=== PATIENT | female | born 2000 | race American Indian/Alaskan Native ===

== ENCOUNTER 2021-04-06 23:00 | Outpatient (CLI) | payer OTHER, MEDICAID ==
[2021-04-06 23:23] VITALS: BP 123/74
[2021-04-06] MEDS ORDERED: LACTATED RINGERS 500 ML IV ONE (23:32)
[2021-04-07] MEDS ORDERED: LACTATED RINGERS 1,000 ML ONE (00:25)
[2021-04-07] MEDS ORDERED: LACTATED RINGERS 1,000 ML IV ONE (01:04)
[2021-04-07 01:25] LABS: Bacteria,Urine 1+ /HPF (Negative); Bilirubin,Urine NEG (Negative); Blood,Urine NEG (Negative); Color,Urine Colorless (Yellow); Protein,Urine <15 mg/dL mg/dL (Negative); Urobilinogen,Urine < 2.0 mg/dL (<2.0)
== END 2021-04-07 02:30 | disposition home or self-care (01) ==
LOC: TRG 23:00 → APU 23:07 → TRG 04-07 02:30
PROVIDERS: ATTEND Obstetrics & Gynecology
DX: O26.893 Other specified pregnancy related conditions, third trimester (principal); R10.2 Pelvic and perineal pain; Z3A.29 29 weeks gestation of pregnancy
CPT/HCPCS: 59025; 81001; 96360; J7120

== ENCOUNTER 2021-05-07 07:25 | Outpatient (CLI) | payer OTHER, MEDICAID ==
[2021-05-07 07:29] VITALS: BP 111/64
--- NOTE | 2021-05-07 08:58 | Ultrasound Report ---
ULTRASOUND OBSTETRIC LIMITED ULTRASOUND BIOPHYSICAL PROFILE INDICATION / CLINICAL INFORMATION: BPP/ANNY. Clinical Gestational Age (GA): 34.2 weeks.days COMPARISON: None available. FINDINGS: BREATHING MOVEMENT = 2 GROSS BODY MOVEMENT = 2 TONE = 2 QUALITATIVE AMNIOTIC FLUID VOLUME = 2 TOTAL BIOPHYSICAL SCORE = 8/8 HEART RATE (beats per minute): 145 AMNIOTIC FLUID INDEX (cm) = 14.0 (normal = 7-24 cm) PRESENTATION: Cephalic. ADDITIONAL FINDINGS: None. IMPRESSION: 1. Biophysical Score = 8/8 2. Single living intrauterine gestation in cephalic position without significant sonographic abnormal ity. Signer Name: Earl Parra MD Signed: 05/07/2021 8:53 AM Workstation Name: [id number]
[2021-05-07] MEDS ORDERED: LACTATED RINGERS 500 ML IV ONE (09:30)
== END 2021-05-07 12:24 | disposition home or self-care (01) ==
LOC: TRG 07:25 → APU 07:26 → TRG 12:24
PROVIDERS: ATTEND Obstetrics & Gynecology
DX: O36.8130 Decreased fetal movements, third trimester, not applicable or unspecified (principal); Z3A.34 34 weeks gestation of pregnancy
CPT/HCPCS: 59025; 76815; 76819

== ENCOUNTER 2021-06-10 20:18 | Inpatient (IN) | payer OTHER, MEDICAID ==
[2021-06-10] MEDS ORDERED: DINOPROSTONE 10 MG VAG SUPP VG ONE (21:43)
[2021-06-10] MEDS ORDERED: MINERAL OIL 30 ML ORAL LIQD PO PRN (21:43)
[2021-06-10] MEDS ORDERED: OXYTOCIN 10 UNIT/1 ML INJ IM PRN (21:43)
[2021-06-10] MEDS ORDERED: CARBOPROST TROMETHAMINE 250 MCG/1 ML INJ IM PRN (21:43)
[2021-06-10] MEDS ORDERED: ACETAMINOPHEN 325 MG TAB PO PRN (21:43)
[2021-06-10] MEDS ORDERED: ONDANSETRON 4 MG/2 ML INJ IV PRN (21:43)
[2021-06-10] MEDS ORDERED: TERBUTALINE 1 MG/1 ML INJ SUB-Q PRN (21:43)
[2021-06-10] MEDS ORDERED: LOPERAMIDE 2 MG CAP PO PRN (21:43)
[2021-06-10] MEDS ORDERED: miSOPROStol 200 MCG TAB PR PRN (21:43)
[2021-06-10] MEDS ORDERED: ePHEDrine SULFATE 50 MG/1 ML INJ IV PRN (21:43)
[2021-06-10] MEDS ORDERED: METHYLERGONOVINE MALEATE 0.2 MG/ML VIAL IM PRN (21:43)
[2021-06-10] MEDS ORDERED: LIDOCAINE (2%) 20 MG/1 ML VIAL 20 ML MDV INFILTRATI ONE (21:43)
[2021-06-10] MEDS ORDERED: LACTATED RINGERS 1,000 ML IV SCH (21:45)
[2021-06-10] MEDS ORDERED: AMPICILLIN/NS 2 GM/100 ML 2 GM/100 ML BAG IV ONE (21:51)
[2021-06-10] MEDS ORDERED: LACTATED RINGERS 1,000 ML ONE (21:56)
[2021-06-10] MEDS ORDERED: OXYTOCIN DRIP 30 UNITS/500 ML BAG IV SCH (22:00)
[2021-06-10 22:21] LABS: Hematocrit 29.8 % (30.3-42.9); Mean Corpuscular HGB Conc 34 % (30-34); Mean Corpuscular Volume 81 fl (79-97); Platelet Count 281 K/mm3 (140-440); Red Cell Distribution Width 15.5 % (13.2-15.2)
[2021-06-10] MEDS: valACYclovir 500 MG TAB PO SCH (22:35)
[2021-06-11] MEDS: BUTORPHANOL 2 MG/1 ML INJ IV PRN ×3 (04:52→20:19)
--- NOTE | 2021-06-11 08:37 | History and Physical Report ---
History of Present Illness Date of examination: 06/11/21 Date of admission: 06/10/21 20:18 Chief complaint: IOL for obesity History of present illness: 21y/o 39+2 weeks presents for induction of labor obesity. Patient initiated care in the first trimester. Her is complicated by obesity. She is GBS positive. Past History Past Medical History: no pertinent history Past Surgical History: no surgical history Social history: single - Obstetrical History Expected Date of Delivery: 06/16/21 Actual Gestation: 39 Week(s) 2 Day(s) : 1 Para: 0 Hx # Term Pregnancies: 0 Number of Pregnancies: 0 Spontaneous Abortions: 0 Induced : 0 Number of Living Children: 0 Medications and Allergies Allergies Allergy/AdvReac Type Severity Reaction Status Date / Time No Known Allergies Allergy Unverified 04/06/21 23:31 Home Medications Medication Instructions Recorded Confirmed Last Taken Type No Known Home Medications [No 06/10/21 06/10/21 Unknown History Reported Home Medications] Active Meds: Active Medications Acetaminophen (Acetaminophen 325 Mg Tab) 650 mg PO Q4H PRN PRN Reason: Pain, Mild (1-3) Butorphanol Tartrate (Butorphanol 2 Mg/1 Ml Inj) 2 mg IV Q2H PRN PRN Reason: Pain , Severe (7-10) Last Admin: 06/11/21 04:52 Dose: 2 mg Documented by: Carboprost Tromethamine (Carboprost Tromethamine 250 Mcg/1 Ml Inj) 250 mcg IM ONCE PRN PRN Reason: Uterine Bleeding Ephedrine Sulfate (Ephedrine Sulfate 50 Mg/1 Ml Inj) 10 mg IV Q2M PRN PRN Reason: Hypotension Oxytocin/Sodium Chloride (Pitocin/Ns 30 Unit/500ml) 30 units in 500 mls @ 2 mls/hr IV TITR MARGO; Protocol Lactated Ringer's (Lactated Ringers) 1,000 mls @ 125 mls/hr IV DIRECT MARGO Ampicillin Sodium (Ampicillin/Ns 1 Gm/50 Ml) 1 gm in 50 mls @ 100 mls/hr IV Q4H MARGO; Protocol Loperamide HCl (Loperamide 2 Mg Cap) 2 mg PO ONCE PRN PRN Reason: give with Hemabate Methylergonovine Maleate (Methylergonovine Maleate 0.2 Mg/Ml Vial) 0.2 mg IM ONCE PRN PRN Reason: Uterine Bleeding Mineral Oil (Mineral Oil 30 Ml Oral Liqd) 30 ml PO QHS PRN PRN Reason: Constipation Misoprostol (Misoprostol 200 Mcg Tab) 800 mcg MD ONCE PRN PRN Reason: Uterine Bleeding Ondansetron HCl (Ondansetron 4 Mg/2 Ml Inj) 4 mg IV Q8H PRN PRN Reason: Nausea And Vomiting Oxytocin (Oxytocin 10 Unit/1 Ml Inj) 10 unit IM ONCE PRN PRN Reason: Uterine Bleeding Terbutaline Sulfate (Terbutaline 1 Mg/1 Ml Inj) 0.25 mg SUB-Q ONCE PRN PRN Reason: Hyperstimulation/Hypertonicity Valacyclovir HCl (Valacyclovir 500 Mg Tab) 1,000 mg PO QDAY MARGO Last Admin: 06/10/21 22:35 Dose: 1,000 mg Documented by: Review of Systems All systems: negative Genitourinary: contractions, no leakage of fluid - Vital Signs Vital signs: Vital Signs Pulse BP 126 H 125/82 06/10/21 21:14 06/10/21 21:14 Temp Pulse Resp BP Pulse Ox 97.5 F L 105 H 16 119/72 100 06/11/21 08:08 06/11/21 08:33 06/10/21 21:32 06/11/21 07:58 06/11/21 08:33 - Physical Exam Breasts: Positive: deferred Cardiovascular: Regular rate Abdomen: Positive: normal appearance Results Result Diagrams: 06/10/21 21:25 Abnormal lab results 06/10/21 Range/Units 21:25 Hgb 10.0 L (10.1-14.3) gm/dl Hct 29.8 L (30.3-42.9) % MCH 27 L (28-32) pg RDW 15.5 H (13.2-15.2) % All other labs normal. Assessment and Plan - Patient Problems (1) Obesity affecting Current Visit: Yes Status: Acute Plan to address problem: patient received cervidil overnight will reassess after 12 hours of placement
[2021-06-11] MEDS: valACYclovir 500 MG TAB PO SCH (10:04)
[2021-06-11] MEDS ORDERED: AMPICILLIN/NS 2 GM/100 ML 2 GM/100 ML BAG IV ONE (12:53)
[2021-06-11] MEDS: AMPICILLIN/NS 1 GM/50 ML 1 GM/50 ML BAG IV SCH ×2 (14:52→16:42)
[2021-06-11] MEDS ORDERED: NALOXONE 2 MG/2 ML INJ IV PRN (21:02)
[2021-06-11] MEDS ORDERED: ePHEDrine SULFATE 50 MG/1 ML INJ IV PRN (21:02)
--- NOTE | 2021-06-11 21:02 | Anesthesia Consultation ---
Anesthesia Consult and Med Hx Date of service: 06/11/21 - Airway Anesthetic Teeth Evaluation: Good ROM Head & Neck: Adequate Mental/Hyoid Distance: Adequate Mallampati Class: Class III Intubation Access Assessment: Possibly Difficult - Pulmonary Exam CTA: Yes - Cardiac Exam Cardiac Exam: RRR - Pre-Operative Health Status ASA Pre-Surgery Classification: ASA3 Proposed Anesthetic Plan: Epidural - Pulmonary Hx Smoking: No Hx Asthma: Yes (childhood asthma) Hx Respiratory Symptoms: No SOB: No COPD: No Home Oxygen Therapy: No Hx Pneumonia: No Hx Sleep Apnea: No - Cardiovascular System Hx Hypertension: No Hx Coronary Artery Disease: No Hx Heart Attack/AMI: No Hx Angina: No Hx Percutaneous Transluminal Coronary Angioplasty (PTCA): No Hx Cardia Arrhythmia: No Hx Pacemaker: No Hx Internal Defibrillator: No Hx Valvular Heart Disease: No Hx Heart Murmur: No Hx Peripheral Vascular Disease: No - Central Nervous System Hx Neuromuscular Disorder: No Hx Seizures: No CVA: No Hx Back Pain: Yes Hx Psychiatric Problems: No - Gastrointestinal Hx Ulcer: No Hx Gastroesophageal Reflux Disease: Yes - Endocrine Hx Renal Disease: No Hx End Stage Renal Disease: No Hx Cirrhosis: No Hx Liver Disease: No Hx Insulin Dependent Diabetes: No Hx Non-Insulin Dependent Diabetes: No Hx Thyroid Disease: No Hx Hypothyroidism: No Hx Hyperthyroidism: No - Hematic Hx Anemia: No Hx Sickle Cell Disease: No - Other Systems Hx Alcohol Use: No Hx Substance Use: No Hx Cancer: No Hx Obesity: Yes
[2021-06-11] MEDS ORDERED: fentaNYL-BUPIV 2 MCG/ML-0.125% 200 MCG/100 ML BAG EPIDURAL SCH (22:00)
[2021-06-11] MEDS ORDERED: LIDOCAINE (2%) 20 MG/1 ML VIAL 20 ML MDV INFILTRATI ONE (23:50)
[2021-06-12] MEDS: AMPICILLIN/NS 1 GM/50 ML 1 GM/50 ML BAG IV SCH (00:35)
--- NOTE | 2021-06-12 03:20 | Post Anesthesia Evaluation ---
- Post Anesthesia Evaluation Patient Participated: Yes Airway Patent: Yes Stable Respiratory Function: Yes Nausea/Vomiting: No Temp > 96.8F: Yes Pain Manageable: Yes Adequeate Hydration: Yes Anesthesia Complications: No Block Receding Appropriately: Yes Patient on Ventilator: No
[2021-06-12] MEDS ORDERED: OXYTOCIN DRIP 30 UNITS/500 ML BAG IV SCH (03:53)
--- NOTE | 2021-06-12 04:00 | Procedure Note ---
OB Delivery Note - Delivery Date of Delivery: 06/12/21 Surgeon: INES BUTTERFIELD Estimated blood loss: other (400ml) - Vaginal Delivery presentation: vertex Delivery position: OA Delivery monitor: external FHT, external uterine Route of delivery: Delivery placenta: spontaneous Delivery cord: 3 umbilical vessels Episiotomy: none Delivery laceration: none Anesthesia: epidural - Infant A at 1 minute: 8 at 5 minutes: 9 Gender: Male (weight 6lbs 12oz)
[2021-06-12] MEDS: IBUPROFEN 600 MG TAB PO PRN ×3 (06:40→17:37)
[2021-06-12] MEDS: valACYclovir 500 MG TAB PO SCH (12:37)
[2021-06-12 20:16] LABS: Hematocrit 25.9 % (30.3-42.9); Hemoglobin 8.4 gm/dl (10.1-14.3)
[2021-06-13] MEDS: IBUPROFEN 600 MG TAB PO PRN ×2 (05:49→14:05)
--- NOTE | 2021-06-13 08:15 | Discharge Summary ---
Providers - Providers Date of Admission: 06/10/21 20:18 Date of discharge: 06/13/21 Attending physician: NEELIMA CAATLAN Primary care physician: NEELIMA CATALAN Hospitalization Reason for admission: induction of labor Delivery: Episiotomy: none Laceration: none Other procedures: none complications: none Discharge diagnosis: IUP at term delivered baby: male Hospital course: 21y/o 39+2 weeks presents for induction of labor obesity. Patient initiated care in the first trimester. Her is complicated by obesity. She is GBS positive Condition at discharge: Good Disposition: DC-01 TO HOME OR SELFCARE - Discharge Diagnoses (1) Status post normal vaginal delivery Status: Acute (2) Anemia Status: Acute Qualifiers: Anemia type: other cause Other causes of anemia: acute posthemorrhagic Qualified Code(s): D62 - Acute posthemorrhagic anemia Comment: Asymptomatic Increase iron rich foods into diet Plan - Discharge Medications Prescriptions: Ferrous Sulfate [Feosol 325 MG tab] 325 mg PO BID 30 Days #60 tablet Ibuprofen [Motrin 600 MG tab] 600 mg PO Q8H PRN 7 Days #21 tablet PRN Reason: Pain, Mild (1-3) - Provider Discharge Summary Activity: routine, no sex for 6 weeks, no heavy lifting 4 weeks, no strenuous exercise Diet: other (Iron rich diet) Instructions: routine Additional instructions: [] Smoking cessation referral if applicable(refer to patient education folder for contact #) [] Refer to [facility]'s [facility] Center Booklet Call your doctor immediately for: * Fever > 100.5 * Heavy vaginal bleeding ( >1 pad per hour) * Severe persistent headache * Shortness of breath * Reddened, hot, painful area to leg or breast - Follow up plan Follow up: NEELIMA CATALAN MD [Primary Care Provider] - 6 Weeks
[2021-06-13] MEDS: valACYclovir 500 MG TAB PO SCH (09:26)
[2021-06-13] MEDS ORDERED: FERROUS SULFATE 325 MG TAB PO SCH (10:00)
[2021-06-13 14:13] VITALS: BP 130/78
[2021-06-13] MEDS ORDERED: MEASLES, MUMPS & RUBELLA 12,500 UNIT/0.5 ML VACCINE SUB-Q ONE (15:30)
== END 2021-06-13 15:00 | disposition home or self-care (01) | DRG 806 ==
LOC: LD 20:18 → OB 06-12 06:23
PROVIDERS: ADMIT Obstetrics & Gynecology; ATTEND Obstetrics & Gynecology
PROC: 10E0XZZ Delivery of Products of Conception, External Approach (ICD-10-PCS; principal; 2021-06-12)
PROC: 3E0R3BZ Introduction of Anesthetic Agent into Spinal Canal, Percutaneous Approach (ICD-10-PCS; 2021-06-12)
PROC: 00HU33Z Insertion of Infusion Device into Spinal Canal, Percutaneous Approach (ICD-10-PCS; 2021-06-12)
PROC: 3E0234Z Introduction of Serum, Toxoid and Vaccine into Muscle, Percutaneous Approach (ICD-10-PCS; 2021-06-13)
DX: O99.214 Obesity complicating childbirth (principal); D62 Acute posthemorrhagic anemia; Z37.0 Single live birth; E66.9 Obesity, unspecified; O99.824 Streptococcus B carrier state complicating childbirth; O99.52 Diseases of the respiratory system complicating childbirth; J45.909 Unspecified asthma, uncomplicated; O99.62 Diseases of the digestive system complicating childbirth; K21.9 Gastro-esophageal reflux disease without esophagitis; O99.02 Anemia complicating childbirth; Z3A.39 39 weeks gestation of pregnancy; Z23 Encounter for immunization
CPT/HCPCS: 36415; 59200; 85014; 85018; 85027; 86850; 86900; 86901; 90707; 99211; G0378; G0463; J0290; J0595; J2405; J2590; J7120; U0003

== ENCOUNTER 2022-06-01 08:32 | Emergency (ER) | payer OTHER, MEDICAID ==
[2022-06-01 08:46] VITALS: BP 143/83
[2022-06-01] MEDS ORDERED: IBUPROFEN 800 MG TAB PO ONE (08:59)
[2022-06-01] MEDS ORDERED: AMOXICILLIN/K CLAV 875/125MG TAB PO ONE (08:59)
--- NOTE | 2022-06-01 09:11 | Emergency Department Report ---
ED General Adult HPI - General Chief complaint: Sore Throat Stated complaint: SORE THROAT/EAR PAIN Time Seen by Provider: 06/01/22 08:59 Source: patient Mode of arrival: Ambulatory Limitations: No Limitations - History of Present Illness Initial comments: Patient 21-year-old female with history of recurrent sinusitis recurrent strep throat who presents for sore throat and bilateral ear pain with sinus pressure for the past week. Patient states treated 1 month ago with amoxicillin however symptoms have returned. There is nocturnal fever and chills with malaise. Patient denies shortness of breath no dizziness or lightheadedness no nausea vomiting no chest pain. Patient is tolerating p.o. intake with minimal pain described as burning with swallowing. Denies other history. - Related Data Previous Rx's Medication Instructions Recorded Last Taken Type Ferrous Sulfate [Feosol 325 MG tab] 325 mg PO BID 30 Days #60 tablet 06/13/21 Unknown Rx Ibuprofen [Motrin 600 MG tab] 600 mg PO Q8H PRN 7 Days #21 tablet 06/13/21 Unknown Rx Amoxicillin/K Clav Tab [Augmentin 1 tab PO BID 7 Days #14 tab 06/01/22 Unknown Rx 875 mg] Benzocaine/Mentho [Cepacol X 1 each MM Q2H #3 packet 06/01/22 Unknown Rx Strength] Ibuprofen [Motrin 800 MG tab] 800 mg PO Q8HR PRN #30 tablet 06/01/22 Unknown Rx predniSONE [Deltasone] 40 mg PO QDAY 5 Days #10 tab 06/01/22 Unknown Rx Allergies Allergy/AdvReac Type Severity Reaction Status Date / Time No Known Allergies Allergy Verified 06/11/21 09:10 ED Review of Systems ROS: Stated complaint: SORE THROAT/EAR PAIN Other details as noted in HPI Constitutional: chills, fever, malaise Eyes: denies: eye pain, eye discharge, vision change ENT: ear pain, throat pain, congestion, other (Sinus pressure frontal) Respiratory: denies: cough, shortness of breath, wheezing Cardiovascular: denies: chest pain, palpitations Endocrine: no symptoms reported Gastrointestinal: denies: abdominal pain, nausea, diarrhea Genitourinary: denies: urgency, dysuria, discharge Musculoskeletal: denies: back pain, joint swelling, arthralgia Skin: denies: rash, lesions Neurological: denies: headache, weakness, vertigo Psychiatric: denies: anxiety, depression Hematological/Lymphatic: denies: easy bleeding, easy bruising ED Past Medical Hx - Past Medical History Hx Hypertension: No Hx Heart Attack/AMI: No Hx Diabetes: No Hx Deep Vein Thrombosis: No Hx Liver Disease: No Hx Renal Disease: No Hx Sickle Cell Disease: No Hx Seizures: No Hx Asthma: Yes (childhood asthma) Hx COPD: No Hx HIV: No - Surgical History Past Surgical History?: No Hx Pacemaker: No Hx Internal Defibrillator: No - Social History Smoking Status: Never Smoker - Medications Home Medications: Home Medications Medication Instructions Recorded Confirmed Last Taken Type Ferrous Sulfate [Feosol 325 MG tab] 325 mg PO BID 30 Days #60 tablet 06/13/21 Unknown Rx Ibuprofen [Motrin 600 MG tab] 600 mg PO Q8H PRN 7 Days #21 tablet 06/13/21 Unknown Rx Amoxicillin/K Clav Tab [Augmentin 1 tab PO BID 7 Days #14 tab 06/01/22 Unknown Rx 875 mg] Benzocaine/Mentho [Cepacol X 1 each MM Q2H #3 packet 06/01/22 Unknown Rx Strength] Ibuprofen [Motrin 800 MG tab] 800 mg PO Q8HR PRN #30 tablet 06/01/22 Unknown Rx predniSONE [Deltasone] 40 mg PO QDAY 5 Days #10 tab 06/01/22 Unknown Rx ED Physical Exam - General Limitations: No Limitations General appearance: alert, in no apparent distress - Head Head exam: Present: normocephalic, normal inspection - Eye Eye exam: Present: PERRL, EOMI. Absent: conjunctival injection, nystagmus Pupils: Present: normal accommodation - Expanded ENT Exam Expanded Ear exam: Present: normal external inspection TM/Canal exam: Erythema: Right TM, Left TM, Effusion: Right TM, Canal Tenderness: Right TM, Left TM Mouth exam: Absent: trismus Throat exam: Positive: tonsillar erythema, tonsillomegaly, tonsillar exudate, other (Uvula midline bilateral tonsillar exudate no lesions airway is patent no stridor no wheezing). Negative: R peritonsillar mass, L peritonsillar mass - Neck Neck exam: Present: normal inspection, tenderness, full ROM, lymphadenopathy (Bilateral anterior auricle). Absent: meningismus, thyromegaly - Respiratory Respiratory exam: Present: normal lung sounds bilaterally. Absent: respiratory distress, wheezes, stridor, chest wall tenderness - Cardiovascular Cardiovascular Exam: Present: normal rhythm, tachycardia (112 at this time), normal heart sounds. Absent: systolic murmur, diastolic murmur, rubs, gallop - GI/Abdominal GI/Abdominal exam: Present: soft, normal bowel sounds. Absent: distended, tenderness, bruit, hernia - Rectal Rectal exam: Present: deferred - Extremities Exam Extremities exam: Present: normal inspection, full ROM, normal capillary refill - Back Exam Back exam: Present: normal inspection, full ROM. Absent: CVA tenderness (R), CVA tenderness (L) - Neurological Exam Neurological exam: Present: alert, oriented X3, CN II-XII intact, normal gait - Psychiatric Psychiatric exam: Present: normal affect, normal mood - Skin Skin exam: Present: warm, dry, intact, normal color. Absent: rash ED Course Vital Signs 06/01/22 08:43 Temperature 100.4 F H Pulse Rate 144 H Respiratory 18 Rate Blood Pressure 143/83 O2 Sat by Pulse 98 Oximetry ED Medical Decision Making - Medical Decision Making Symptoms much improved after medications given in ED heart rate decreased to 98 at this time, O2 sat is 99% on room air, patient is tolerating p.o. intake without throat pain. Brad DC'd home with prescriptions. Follow-up with ENT in 2 to 3 days as directed. Return to emergency department should symptoms worsen. Patient verbalized agreement understanding discharge plan. Patient DC'd home in stable condition at this time. Critical care attestation.: If time is entered above; I have spent that time in minutes in the direct care of this critically ill patient, excluding procedure time. ED Disposition Clinical Impression: Sinusitis Qualifiers: Sinusitis location: frontal Chronicity: acute Recurrence: recurrent Qualified Code(s): J01.11 - Acute recurrent frontal sinusitis Pharyngitis Qualifiers: Pharyngitis/tonsillitis etiology: unspecified etiology Qualified Code(s): J02.9 - Acute pharyngitis, unspecified Disposition: HOME / SELF CARE / HOMELESS Is pt being admited?: No Does the pt Need Aspirin: No Condition: Stable Instructions: Sinusitis, Adult, [id number] Additional Instructions: Take medication as prescribed, follow-up with ear nose and throat doctor in 2 to 3 days. Return to emergency department should symptoms worsen. Prescriptions: Amoxicillin/K Clav Tab [Augmentin 875 mg] 1 tab PO BID 7 Days #14 tab Benzocaine/Mentho [Cepacol X Strength] 1 each MM Q2H #3 packet predniSONE [Deltasone] 40 mg PO QDAY 5 Days #10 tab Ibuprofen [Motrin 800 MG tab] 800 mg PO Q8HR PRN #30 tablet PRN Reason: Pain Fever Referrals: JOAQUÍN ARIAS MD [Referring] - 2-3 Days Forms: Work/School Release Form(ED) Time of Disposition: 10:25
== END 2022-06-01 10:32 | disposition home or self-care (01) ==
LOC: ED 08:32
DX: J02.9 Acute pharyngitis, unspecified (principal); J01.11 Acute recurrent frontal sinusitis; J45.909 Unspecified asthma, uncomplicated
CPT/HCPCS: 99282